=== PATIENT | female | born 1990 | race African-American/Black ===

== ENCOUNTER 2021-11-02 06:34 | Emergency (ER) | payer OTHER ==
[~2021-11-02] VITALS: Ht 165.1 cm; Wt 70.3 kg
--- NOTE | 2021-11-02 06:46 | NUR ---
BIBSELF C/O FEVER, BODY ACHES, SORE THROAT X 1 NIGHT . PT A/OX4. TOLERATING R/A WELL WITH NO SOB AT 98%. RESPIRATIONS EVEN AND NON LABORED. CONNECTED PT TO POX AND MONITOR. SAFETY MEASURES IN PLACE
[2021-11-02] MEDS ORDERED: AZIT250T13 PO (06:59)
--- NOTE | 2021-11-02 07:17 | NUR ---
covid and flu swab specimen obtained and sent to lab.
--- NOTE | 2021-11-02 07:19 | NUR ---
Patient discharged to home in stable condition. Rx for prescription. Written and verbal after care instructions given. Patient verbalizes understanding of instruction. Patient ambulatory with a steady gait
[2021-11-02 07:21] VITALS: BP 120/70
== END 2021-11-02 07:22 | disposition home or self-care (01) ==
LOC: ER 06:34
DX: B34.9 Viral infection, unspecified (principal); Z20.822 Contact with and (suspected) exposure to COVID-19
CPT/HCPCS: 87804; 99283; C9803; U0003

== ENCOUNTER 2025-04-12 03:37 | Emergency (ER) | payer OTHER ==
[~2025-04-12] VITALS: Ht 165.1 cm; Wt 78.0 kg
[~2025-04-12 03:37] MED LIST: AZIT250T13 PO
[2025-04-12] MEDS ORDERED: ONDANSETRON HCL/PF 4 MG/2 ML VIAL ONE (04:27)
[2025-04-12] MEDS ORDERED: KETOROLAC TROMETHAMINE 15 MG/ML VIAL ONE (04:27)
[2025-04-12 04:33] LABS: PLATELET COUNT (AUTO) 230 K/uL (150-450); RED BLOOD CELL COUNT(AUTO) 4.12 MIL/uL (4.0-5.2); RED CELL DISTRIBUTION WIDTH 12.9 % (11.5-15.0); WHITE BLOOD COUNT (AUTO) 12.1 K/uL (4.3-11.0)
[2025-04-12 04:34] LABS: APPEARANCE,URINE SLIGHTLY CLOUDY (CLEAR); BLOOD, URINE NEGATIVE Ery/uL (NEGATIVE); LEUKOCYTE ESTERASE ,URINE NEGATIVE (NEGATIVE); NITRITE, URINE NEGATIVE (NEGATIVE); UGLUCOSE NEGATIVE (NEGATIVE)
[2025-04-12] MEDS: IV NS 0.9% 1,000 ML BAG IV ONE (04:35)
[2025-04-12 04:40] LABS: CALCIUM, SERUM 9.2 mg/dL (8.5-10.1); CREATININE 1.0 mg/dL (0.6-1.3); SODIUM SERUM 137.0 mmol/L (136-145); UREA NITROGEN, BLOOD 12.0 mg/dL (7-18)
[2025-04-12 05:11] LABS: ADD URINE CULTURE YES; SQUAMOUS EPITHELIAL CELL,UR Many /HPF (None Seen)
[2025-04-12] MEDS: KETOROLAC TROMETHAMINE 15 MG/ML VIAL IV ONE (05:13)
[2025-04-12] MEDS: ONDANSETRON HCL/PF 4 MG/2 ML VIAL IVP ONE (05:13)
[2025-04-12 06:57] LABS: ASPARTATE AMINOTRANSFERASE 59.0 U/L (15-37); TOTAL PROTEIN, SERUM 7.5 g/dL (6.4-8.2)
[2025-04-12 07:11] LABS: PREGNANCY TEST SERUM QUAN 0 mIU/mL (0-6)
[2025-04-12] MEDS ORDERED: PANT40TA49 PO (07:45)
[2025-04-12 08:00] VITALS: BP 121/74; TEMP 98.6; O2SAT 100
== END 2025-04-12 08:01 | disposition home or self-care (01) ==
LOC: ER 03:38
DX: R10.13 Epigastric pain (principal); R10.11 Right upper quadrant pain; R11.10 Vomiting, unspecified; R10.20 Pelvic and perineal pain unspecified side; Z88.8 Allergy status to other drugs, medicaments and biological substances
CPT/HCPCS: 99285; 96374; 76705; 96361; 96375; 85025; 80048; 87086; 83690; 80076; 81001; 36415; 84702; J1885; J2405; J7030